=== PATIENT | female | born 1945 | race Caucasian/White ===

== ENCOUNTER 2020-09-09 11:58 | Day surgery (SDC) | payer MEDICARE, BC ==
[2020-09-09] MEDS ORDERED: Decadron 4 MG INJ IV ONE (11:59)
[2020-09-09] MEDS ORDERED: Xylocaine-Mpf 2% 5 Ml Vial IJ ONE (11:59)
[2020-09-09] MEDS ORDERED: DIPRIVAN 200 MG/20 ML IV ONE (13:25)
[2020-09-09] MEDS ORDERED: Ketamine HCl 50 MG/ML ONE (13:25)
--- NOTE | 2020-09-09 15:47 | XRAY ---
Indication: Right C2-C5 MBB. Intraoperative fluoroscopy provided for 29 seconds. 2 digital spot images submitted for interpretation demonstrates posterior needle tips projecting over the expected right C2-C5 nerve roots. Correlate with intraoperative findings/report.
--- NOTE | 2020-09-09 15:51 | XRAY ---
29 seconds fluoroscopy time in surgery right C2-C5 MBB.
[2020-09-09] MEDS ORDERED: Lactated Ringers 1,000 ML IV ONE (16:36)
== END 2020-09-09 14:03 | disposition home or self-care (01) ==
LOC: SDC-PAIN 11:58
PROVIDERS: ATTEND Psychiatry & Neurology Pain Medicine
DX: M47.812 Spondylosis without myelopathy or radiculopathy, cervical region (principal); I10 Essential (primary) hypertension; E06.3 Autoimmune thyroiditis; E03.9 Hypothyroidism, unspecified; I45.4 Nonspecific intraventricular block; Z85.3 Personal history of malignant neoplasm of breast; I89.0 Lymphedema, not elsewhere classified; I25.10 Atherosclerotic heart disease of native coronary artery without angina pectoris; Z79.899 Other long term (current) drug therapy
CPT/HCPCS: 64490; 64491; 64492; 72020; 77002; J1100; J2704

== ENCOUNTER 2020-10-14 09:49 | Day surgery (SDC) | payer MEDICARE, BC ==
[2020-10-14] MEDS ORDERED: Decadron 4 MG INJ IV ONE (09:50)
[2020-10-14] MEDS ORDERED: Xylocaine 1% Vial 30 ML PF IJ ONE (09:50)
--- NOTE | 2020-10-14 12:54 | XRAY ---
Indication: Bilateral piriformis injection. Intraoperative fluoroscopy provided for 39 seconds. 2 digital spot image submitted for interpretation demonstrates posterior needle tip projecting over the expected left and right piriformis muscles. Small amount of contrast injected for both needle tip placement. Correlate with intraoperative findings/report.
--- NOTE | 2020-10-14 13:00 | XRAY ---
39 seconds fluoroscopy time in surgery for right piriformis muscle injection.
== END 2020-10-14 11:17 | disposition home or self-care (01) ==
LOC: SDC-PAIN 09:49
PROVIDERS: ATTEND Psychiatry & Neurology Pain Medicine
DX: M60.88 Other myositis, other site (principal); Z79.899 Other long term (current) drug therapy; E03.9 Hypothyroidism, unspecified; I10 Essential (primary) hypertension; I89.0 Lymphedema, not elsewhere classified; E06.3 Autoimmune thyroiditis; I25.10 Atherosclerotic heart disease of native coronary artery without angina pectoris; Z85.3 Personal history of malignant neoplasm of breast
CPT/HCPCS: 20552; 72202; 77002; J1100; J2001; Q9966

== ENCOUNTER 2020-11-18 11:28 | Day surgery (SDC) | payer MEDICARE, BC ==
[2020-11-18] MEDS ORDERED: BUPIVACAINE 0.5% VIAL IJ ONE (11:29)
[2020-11-18] MEDS ORDERED: Decadron 4 MG INJ IV ONE (11:29)
[2020-11-18] MEDS ORDERED: DIPRIVAN 200 MG/20 ML IV ONE (13:05)
--- NOTE | 2020-11-18 14:47 | XRAY ---
Indication: Bilateral ischial bursa injection. Intraoperative fluoroscopy provided for 48 seconds. 4 digital spot images submitted for interpretation demonstrates posterior needle tip projecting just inferior to the left and right ischial tuberosities. Small amount of contrast injected for needle tip placement. Correlate with intraoperative findings/report.
--- NOTE | 2020-11-18 14:59 | XRAY ---
48 seconds fluoroscopy time in surgery for bilateral ischial bursa injections.
[2020-11-18] MEDS ORDERED: Lactated Ringers 1,000 ML IV ONE (16:04)
== END 2020-11-18 13:36 | disposition home or self-care (01) ==
LOC: SDC-PAIN 11:28
PROVIDERS: ATTEND Psychiatry & Neurology Pain Medicine
DX: M70.62 Trochanteric bursitis, left hip (principal); M70.61 Trochanteric bursitis, right hip; I25.10 Atherosclerotic heart disease of native coronary artery without angina pectoris; M19.90 Unspecified osteoarthritis, unspecified site; C50.919 Malignant neoplasm of unspecified site of unspecified female breast; E03.9 Hypothyroidism, unspecified; I10 Essential (primary) hypertension; I45.4 Nonspecific intraventricular block; E06.3 Autoimmune thyroiditis; F32.9 Major depressive disorder, single episode, unspecified; F41.9 Anxiety disorder, unspecified; M41.9 Scoliosis, unspecified; Z79.899 Other long term (current) drug therapy
CPT/HCPCS: 72170; 77002; J1100; J2704